=== PATIENT | female | born 1995 | race Caucasian/White ===

== ENCOUNTER 2016-10-22 10:05 | Emergency (ER) | payer OTHER ==
[~2016-10-22] VITALS: Ht 162.6 cm; Wt 102.5 kg
[~2016-10-22 10:05] MED LIST: DOXY100T20 PO; HYDR-3720 PO; IBUP800T25 PO; NITR-58 PO; ONDA4TAB35 PO
[2016-10-22 10:20] VITALS: Ht 162.6 cm; Wt 102.5 kg
[2016-10-22 12:29] LABS: URINE BLOOD (Dip) POC 2+ (NEGATIVE)
[2016-10-22] MEDS ORDERED: NITR-58 PO (13:26)
[2016-10-22] MEDS ORDERED: PHEN-537 PO (13:26)
[2016-10-22 13:35] VITALS: BP 116/68; PULSE 85; RESP 20; TEMP 98.3
--- NOTE | 2016-10-22 15:48 | ERD ---
ER Documentation Chief Complaint Date/Time DATE: 10/22/16 TIME: 15:45 Chief Complaint BLOOD IN THE URINE HPI 21-year-old female patient with no significant past medical history presents the ED complaining of dysuria and hematuria that started 3 days ago. Reports that she had some "meat" like clot come out of the vagina. States that she has been drinking cranberry juice without relief. States that her last menses was on October 15, 2016. Denies any chest pain, shortness of breath, pelvic pain, abdominal pain, nausea, vomiting, diarrhea, vaginal discharge, fever, chills. ROS All systems reviewed and are negative except as per history of present illness. Medications Home Meds Active Scripts Phenazopyridine Hcl* (Pyridium*) 100 Mg Tab, 100 MG PO TID Y for URINARY PAIN, # 8 TAB Prov:GERMÁN HER PA-C 10/22/16 Nitrofurantoin Monohyd Macrocr* (Macrobid*) 100 Mg Capsr, 100 MG PO BID for 7 Days, CAP Prov:GERMÁN HER PA-C 10/22/16 Nitrofurantoin Monohyd Macrocr* (Macrobid*) 100 Mg Capsr, 100 MG PO BID for 7 Days, CAP Prov:TRENTON WATTS PA-C 02/16/16 Ibuprofen* (Motrin*) 800 Mg Tab, 800 MG PO Q6, #30 TAB Prov:TRENTON WATTS PA-C 02/16/16 Doxycycline Hyclate* (Doxycycline Hyclate*) 100 Mg Tablet.dr, 100 MG PO BID for 5 Days, TAB Prov:JAI RUIZ DO 10/13/15 Ondansetron Hcl* (Zofran* ODT) 4 mg -ODT Tab.disper, 4 MG PO Q4H Y for NAUSEA AND OR VOMITING, #14 TAB Prov:JAI RUIZ DO 10/13/15 Hydrocodone Bit-Acetaminophen* (Block[place]*) 7.5-325 Tablet, 2 TAB PO Q4H Y for PAIN , #30 TAB Prov:BOY RUIZSTRENES A. DO 10/13/15 Allergies Allergies: Coded Allergies: No Known Allergy (Unverified , 10/13/15) PMhx/Soc History of Surgery: Yes (, TUBAL LIGATION) Anesthesia Reaction: No Hx Neurological Disorder: No Hx Respiratory Disorders: No Hx Cardiac Disorders: No Hx Psychiatric Problems: No Hx Miscellaneous Medical Probl: No Hx Alcohol Use: No Hx Substance Use: No Hx Tobacco Use: No Physical Exam Vitals Vital Signs Date Time Temp Pulse Resp B/P Pulse Ox O2 Delivery O2 Flow Rate FiO2 10/22/16 13:35 98.3 85 20 116/68 100 Room Air 10/22/16 10:20 98.2 93 18 117/80 99 Physical Exam Const: [id number], well-nourished. In no acute distress. Head: Atraumatic, normocephalic Eyes: Normal Conjunctiva without injection. No purulent discharge. ENT: Normal external ear, nose, mouth. Uvula midline. No drooling. No trismus. Neck: No cervical midline tenderness. Full range of motion. No meningismus. No cervical lymphadenopathy. No JVD. Resp: Clear to auscultation bilaterally. No wheezing, rhonchi, rales, or crackles. No accessory muscle use. No retractions. Cardio: Regular rate and rhythm. No murmurs, rubs or gallops. Abd: Soft, nontender, non distended. Normal bowel sounds. No palpable masses. No rebound tenderness. No guarding. Negative McBurney's point. Negative psoas sign. Negative obturator sign. Skin: No petechiae or rashes Back: No midline tenderness. No CVA tenderness. Ext: No cyanosis, or edema. Neur: Awake and alert. Normal gait. Normal coordination. Psych: Normal Mood and Affect Results 24 hrs Laboratory Tests Test 10/22/16 12:32 Bedside Urine pH (LAB) 6.0 Bedside Urine Protein (LAB) 2+ Bedside Urine Glucose (UA) Negative Bedside Urine Ketones (LAB) Negative Bedside Urine Blood 2+ Bedside Urine Nitrite (LAB) Positive Bedside Urine Leukocyte Esterase (L 3+ Procedures/MDM 21-year-old female patient with no significant past medical history presents to the ED complaining of hematuria and dysuria. Patient is afebrile nontoxic appearing. Patient has normal vital signs. Patient has a positive nitrite, 3+ leukocyte esterase, 2+ hematuria noted on urine dip. Negative . Patient is appropriate for outpatient management. There is low suspicion for septic renal stone, pyelonephritis, gastritis, GERD, peptic ulcer disease, cholecystitis, choledocholithiasis, cholangitis, pancreatitis, appendicitis, bowel obstruction, ileus, volvulus, nephrolithiasis, pyelonephritis, hepatitis, perforated viscus, diverticulitis, abdominal hernia, acute abdomen, mesenteric ischemia or other emergent conditions. 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 Instructed patient to return to the ED sooner for any worsening symptoms. Patient's questions were answered. Patient understood and agreed with discharge plan. Patient discharged stable. Departure Diagnosis: Primary Impression: Urinary tract infection Urinary tract infection type: acute cystitis Hematuria presence: with hematuria Qualified Code: N30.01 - Acute cystitis with hematuria Condition: Stable Patient Instructions: Understanding Urinary Tract Infections (UTIs) Referrals: [facility] YOU HAVE RECEIVED A MEDICAL SCREENING EXAM AND THE RESULTS INDICATE THAT YOU DO NOT HAVE A CONDITION THAT REQUIRES URGENT TREATMENT IN THE EMERGENCY DEPARTMENT. FURTHER EVALUATION AND TREATMENT OF YOUR CONDITION CAN WAIT UNTIL YOU ARE SEEN IN YOUR DOCTORS OFFICE WITHIN THE NEXT 1-2 DAYS. IT IS YOUR RESPONSIBILITY TO MAKE AN APPOINTMENT FOR FOLOW-UP CARE. IF YOU HAVE A PRIMARY DOCTOR --you should call your primary doctor and schedule an appointment IF YOU DO NOT HAVE A PRIMARY DOCTOR YOU CAN CALL OUR PHYSICIAN REFERRAL HOTLINE AT IF YOU CAN NOT AFFORD TO SEE A PHYSICIAN YOU CAN CHOSE FROM THE FOLLOWING [facility] CLINICS [facility] [address] [facility]. [facility] [address] [facility] [address] [facility] [address] [facility] [address] [facility]. [facility]. [address] [facility] YOU HAVE RECEIVED A MEDICAL SCREENING EXAM AND THE RESULTS INDICATE THAT YOU DO NOT HAVE A CONDITION THAT REQUIRES URGENT TREATMENT IN THE EMERGENCY DEPARTMENT. FURTHER EVALUATION AND TREATMENT OF YOUR CONDITION CAN WAIT UNTIL YOU ARE SEEN IN YOUR DOCTORS OFFICE WITHIN THE NEXT 1-2 DAYS. IT IS YOUR RESPONSIBILITY TO MAKE AN APPOINTMENT FOR FOLOW-UP CARE. IF YOU HAVE A PRIMARY DOCTOR --you should call your primary doctor and schedule and appointment IF YOU DO NOT HAVE A PRIMARY DOCTOR YOU CAN CALL OUR PHYSICIAN REFERRAL HOTLINE AT . IF YOU CAN NOT AFFORD TO SEE A PHYSICIAN YOU CAN CHOSE FROM THE FOLLOWING [facility] INSTITUTIONS: [facility] [address] [place] [address] [facility] [address] [place], [place] [id number] [place] [address] [address] [place] [address] [facility] URGENT CARE/SPECIALTIES Additional Instructions: Call your primary care doctor TOMORROW for an appointment during the next 2-3 days.See the doctor sooner or return here if your condition worsens before your appointment time. GERMÁN HER PA-C Oct 22, 2016 15:48 GERMÁN HER PA-C Oct 22, 2016 15:48
== END 2016-10-22 13:35 | disposition home or self-care (01) ==
LOC: FTE 10:05
DX: N30.01 Acute cystitis with hematuria (principal)
CPT/HCPCS: 81003; 99283

== ENCOUNTER 2017-04-14 12:48 | Emergency (ER) | payer OTHER ==
[~2017-04-14] VITALS: Ht 154.9 cm; Wt 103.1 kg
[~2017-04-14 12:48] MED LIST changes: +PHEN-537 PO
[2017-04-14 12:53] VITALS: Ht 154.9 cm; Wt 103.1 kg
[2017-04-14] MEDS ORDERED: ONDANSETRON (ODT) 4 MG TAB ODT STA (13:28)
[2017-04-14] MEDS ORDERED: HYDROCODONE/APAP (5/325) TAB PO ONE (13:30)
[2017-04-14 13:56] LABS: BASOPHILS % 0.4 % (0.0-2.0); EOSINOPHILS # 0.1 10^3/ul (0.0-0.5); EOSINOPHILS % 1.3 % (0.0-7.0); HEMATOCRIT 41.7 % (37.0-47.0); HEMOGLOBIN 14.3 g/dl (12.0-16.0); LYMPHOCYTES # 1.8 10^3/ul (0.8-2.9); LYMPHOCYTES % 17.4 % (15.0-51.0); MEAN CORPUSCULAR HEMOGLOBIN 28.9 pg (29.0-33.0); MEAN CORPUSCULAR HGB CONC 34.3 g/dl (32.0-37.0); MEAN CORPUSCULAR VOLUME 84.4 fl (82.0-101.0); MONOCYTE # 0.7 10^3/ul (0.3-0.9); NEUTROPHIL # 7.5 10^3/ul (1.6-7.5); NEUTROPHILS % 73.6 % (39.0-77.0); PLATELET COUNT 334 10^3/UL (140-415); RED BLOOD COUNT 4.94 10^6/ul (4.20-5.40); RED CELL DISTRIBUTION WIDTH 11.9 % (11.5-14.5); WHITE BLOOD COUNT 10.2 10^3/ul (4.8-10.8)
[2017-04-14 14:30] LABS: ALBUMIN 4.3 g/dl (3.3-4.9); ALBUMIN/GLOBULIN RATIO 1.16; BILIRUBIN,INDIRECT 0.4 mg/dl (0-1.1); BILIRUBIN,TOTAL 0.4 mg/dl (0.2-1.3); CALCIUM 10.1 mg/dl (8.4-10.2); CREATININE 0.61 mg/dl (0.44-1.00); POTASSIUM 3.9 mmol/L (3.5-5.1)
--- NOTE | 2017-04-14 15:00 | RADRPT ---
PROCEDURE: US Pelvis. CLINICAL INDICATION: pelvic pain TECHNIQUE: Multiple sonographic images of the pelvis were obtained utilizing a transabdominal and endovaginal technique. The images were reviewed on a PACS workstation. COMPARISON: US PELVIS 02/16/2016 FINDINGS: The uterus is normal in size with a normal appearance of the myometrium. The uterus measures 7.7 x 4.1 x 6.3 cm. The endometrial stripe is homogeneous in appearance and has the thickness of 9 mm. The right ovary measures 2.8 x 2.2 x 2.3 cm. There is a 1.2 cm simple cyst in the right ovary. There is normal Doppler flow. The left ovary once again not visualized. No free fluid is present within the pelvis. RPTAT: AA IMPRESSION: Unremarkable pelvic ultrasound. Left ovary not visualized. .Kenneth Ang MD, Date Time Electronically viewed and signed by .Kenneth Ang MD, on 04/14/2017 15:00 .S/
--- NOTE | 2017-04-14 15:01 | RADRPT ---
PROCEDURE: CT Abdomen and Pelvis without intravenous contrast. CLINICAL INDICATION: Abdominal and pelvic pain. . TECHNIQUE: CT scan of the abdomen and pelvis without intravenous contrast was performed on a multi -slice CT scanner. Coronal and sagittal reformatted images were obtained from the axial source image s. Images were reviewed on a high-resolution PACS workstation. DICOM images are available. Total DLP = 1387.2 mGy-cm. CTDIvol = 22.3 mGy. One or more of the following dose reduction techniques were used: Automated exposure control. Adjustment of the mA and/or kV according to patient size. Use of iterative reconstruction technique. COMPARISON: None. FINDINGS: CT abdomen and pelvis: The lung bases are clear. The heart size is normal in size. The liver is normal in size and densit y without focal mass or intrahepatic biliary dilatation. The spleen is normal in size and homogeneo us in density. The pancreas as visualized is normal. The gallbladder shows no evidence of stones or distension . The adrenal glands are normal. The kidneys are symmetrically unremarkable. No ur olithiasis, obstructive uropathy, or solid mass lesion is seen. The stomach is partially collapsed, but is grossly unremarkable. The small bowels are unremarkable. The colon and rectum are normal. The appendix is normal. There is no evidence of appendicitis or di verticulitis. The pelvic organs are normal. The bladder is decompressed. There is no abdominal or pe lvic adenopathy, free fluid, free air, mass or mesenteric inflammation. The aorta is normal in caliber and course. The osseous structures are intact. No osteolytic or osteo blastic lesions are identified. The soft tissues are within normal limits. Lack of IV and oral con trast limits sensitivity of exam. IMPRESSION: 1. Unremarkable noncontrast CT scan of the abdomen and pelvis. RPTAT: QQ .Mickey Riggins MD, Date Time Electronically viewed and signed by .Mickey Riggins MD, on 04/14/2017 15:01 .L/
[2017-04-14 17:29] LABS: ADD UMIC YES; UR ASCORBIC ACID NEGATIVE (NEGATIVE); UR BACTERIA MODERATE /HPF (NONE SEEN); UR BILIRUBIN (Dip) NEGATIVE (NEGATIVE); UR BLOOD (Dip) 3+ mg/dL (NEGATIVE); UR CLARITY CLOUDY (CLEAR); UR COLOR YELLOW (YELLOW); UR GLUCOSE (Dip) NEGATIVE (NEGATIVE); UR KETONES (Dip) NEGATIVE (NEGATIVE); UR LEUKOCYTE ESTERASE (Dip) 3+ Leu/ul (NEGATIVE); UR MUCUS FEW /HPF (NONE SEEN); UR NITRITE (Dip) POSITIVE (NEGATIVE); UR RBC > 182 /HPF (0-5); UR SPECIFIC GRAVITY (Dip) 1.024 (1.003-1.030); UR SQUAMOUS EPITHELIAL CELL FEW /HPF (FEW); UR TOTAL PROTEIN (Dip) 2+ mg/dl (NEGATIVE); UR UROBILINOGEN (Dip) NEGATIVE (NEGATIVE)
[2017-04-14] MEDS ORDERED: CEFTRIAXONE 1 GM INJ IM ONE (17:30)
[2017-04-14] MEDS ORDERED: IBUP-1542 PO (17:36)
[2017-04-14] MEDS ORDERED: CEPH-443 PO (17:36)
--- NOTE | 2017-04-14 17:50 | ERD ---
ER Documentation Chief Complaint Chief Complaint Pelvic pain x1hr, denies vag discharge or bleeding. 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 Patient reports that she has some slight nausea and had 2 episodes of nonbilious nonbloody vomiting. Denies any vaginal discharge, dysuria, urgency, frequency, vaginal bleeding. Reports that her last menstruation was on April 07, 2017. Denies any pain, shortness of breath, diarrhea. ROS All systems reviewed and are negative except as per history of present illness. Medications Home Meds Active Scripts Ondansetron (Ondansetron Odt) 4 Mg Tab.rapdis, 4 MG PO Q6H Y for NAUSEA AND/OR VOMITING, #10 TAB Prov:GERMÁN HER PA-C 04/14/17 Ibuprofen* (Motrin*) 600 Mg Tab, 600 MG PO Q6, #30 TAB Prov:GERMÁN HER PA-C 04/14/17 Cephalexin* (Keflex*) 500 Mg Capsule, 500 MG PO QID for 7 Days, CAP Prov:GERMÁN HER PA-C 04/14/17 Phenazopyridine Hcl* (Pyridium*) 100 Mg Tab, 100 MG PO TID Y for URINARY PAIN, # 8 TAB Prov:GERMÁN HER PA-C 10/22/16 Nitrofurantoin Monohyd Macrocr* (Macrobid*) 100 Mg Capsr, 100 MG PO BID for 7 Days, CAP Prov:GERMÁN HER PA-C 10/22/16 Nitrofurantoin Monohyd Macrocr* (Macrobid*) 100 Mg Capsr, 100 MG PO BID for 7 Days, CAP Prov:TRENTON WATTS PA-C 02/16/16 Ibuprofen* (Motrin*) 800 Mg Tab, 800 MG PO Q6, #30 TAB Prov:TRENTON WATTSC 02/16/16 Doxycycline Hyclate* (Doxycycline Hyclate*) 100 Mg Tablet.dr, 100 MG PO BID for 5 Days, TAB Prov:JAI RUIZ DO 10/13/15 Ondansetron Hcl* (Zofran* ODT) 4 mg -ODT Tab.disper, 4 MG PO Q4H Y for NAUSEA AND OR VOMITING, #14 TAB Prov:JAI RUIZ DO 10/13/15 Hydrocodone Bit-Acetaminophen* (Anderson*) 7.5-325 Tablet, 2 TAB PO Q4H Y for PAIN , #30 TAB Prov:JAI RUIZ. DO 10/13/15 Allergies Allergies: Coded Allergies: No Known Allergy (Unverified , 10/13/15) PMhx/Soc History of Surgery: Yes (, TUBAL LIGATION) Anesthesia Reaction: No Hx Neurological Disorder: No Hx Respiratory Disorders: No Hx Cardiac Disorders: No Hx Psychiatric Problems: No Hx Miscellaneous Medical Probl: No Hx Alcohol Use: No Hx Substance Use: No Hx Tobacco Use: No Physical Exam Vitals Vital Signs Date Time Temp Pulse Resp B/P Pulse Ox O2 Delivery O2 Flow Rate FiO2 04/14/17 12:53 97.7 97 18 126/88 97 Physical Exam Const: [id number]-tcu-[id number], well-nourished. In no acute distress. Head: Atraumatic, normocephalic Eyes: Normal Conjunctiva without injection. No purulent discharge. ENT: Normal external ear, nose. Moist oropharynx without tonsillar exudates. Non -erythematous pharynx. Uvula midline. No drooling. No trismus. Neck: No cervical midline tenderness. Full range of motion. No meningismus. No cervical lymphadenopathy. No JVD. Resp: Clear to auscultation bilaterally. No wheezing, rhonchi, rales, or crackles. No accessory muscle use. No retractions. Cardio: Regular rate and rhythm. No murmurs, rubs or gallops. Abd: Soft, nontender, non distended. Normal bowel sounds. No palpable masses. No rebound tenderness. No guarding. Negative McBurney's point. Negative psoas sign. Negative obturator sign. : See exam in MDM. Skin: No petechiae or rashes Back: No midline tenderness. No CVA tenderness. Ext: No cyanosis, or edema. Neur: Awake and alert. Normal gait. Normal coordination. Psych: Normal Mood and Affect Results 24 hrs Laboratory Tests Test 04/14/17 13:30 04/14/17 16:58 White Blood Count 10.210^3/ul Red Blood Count 4.9410^6/ul Hemoglobin 14.3g/dl Hematocrit 41.7% Mean Corpuscular Volume 84.4fl Mean Corpuscular Hemoglobin 28.9pg Mean Corpuscular Hemoglobin Concent 34.3g/dl Red Cell Distribution Width 11.9% Platelet Count 67292^3/UL Mean Platelet Volume 9.0fl Neutrophils % 73.6% Lymphocytes % 17.4% Monocytes % 7.0% Eosinophils % 1.3% Basophils % 0.4% Nucleated Red Blood Cells % 0.0/100WBC Neutrophils # 7.510^3/ul Lymphocytes # 1.810^3/ul Monocytes # 0.710^3/ul Eosinophils # 0.110^3/ul Basophils # 0.010^3/ul Nucleated Red Blood Cells # 0.010^3/ul Sodium Level 144mmol/L Potassium Level 3.9mmol/L Chloride Level 103mmol/L Carbon Dioxide Level 28mmol/L Anion Gap 17 Blood Urea Nitrogen 13mg/dl Creatinine 0.61mg/dl Glucose Level 119mg/dl Calcium Level 10.1mg/dl Total Bilirubin 0.4mg/dl Direct Bilirubin 0.00mg/dl Indirect Bilirubin 0.4mg/dl Aspartate Amino Transf (AST/SGOT) 31IU/L Alanine Aminotransferase (ALT/SGPT) 40IU/L Alkaline Phosphatase 96IU/L Total Protein 8.0g/dl Albumin 4.3g/dl Globulin 3.70g/dl Albumin/Globulin Ratio 1.16 Lipase 111U/L Urine Color YELLOW Urine Clarity CLOUDY Urine pH 6.0 Urine Specific [place] 1.024 Urine Ketones NEGATIVEmg/dL Urine Nitrite POSITIVEmg/dL Urine Bilirubin NEGATIVEmg/dL Urine Urobilinogen NEGATIVEmg/dL Urine Leukocyte Esterase 3+Iveth/ul Urine Microscopic RBC > 182/HPF Urine Microscopic WBC > 182/HPF Urine Squamous Epithelial Cells FEW/HPF Urine Bacteria MODERATE/HPF Urine Mucus FEW/HPF Urine Hemoglobin 3+mg/dL Urine Glucose NEGATIVEmg/dL Urine Total Protein 2+mg/dl Current Medications Medications (Trade) Dose Ordered Sig/Darryl Route PRN Reason Start Time Stop Time Status Last Admin Dose Admin Ondansetron HCl (Zofran Odt) 4 mg ONCE STAT ODT 04/14/17 13:28 04/14/17 13:31 DC 04/14/17 13:35 Acetaminophen/ Hydrocodone Bitart (Anderson (5/325)) 1 tab ONCE ONCE PO 04/14/17 13:30 04/14/17 13:31 DC 04/14/17 13:36 Ceftriaxone Sodium (Rocephin) 1 gm ONCE ONCE IM 04/14/17 17:30 04/14/17 17:31 DC 04/14/17 17:42 Procedures/MDM This is a 21-year-old female patient with no significant past medical history presents to the ED complaining of lower abdominal pain that started intermittently for 4 hours prior to arrival. Patient is afebrile and nontoxic- appearing. Patient has normal vital signs. Patient was further worked up with CBC, CMP, lipase, UA, CT of the abdomen and pelvis without contrast, pelvic ultrasound. Patient's pain and symptoms have improved after treatment with Anderson, Zofran. CBC: No leukocytosis. No e/o of systemic infection. No e/o anemia. CMP: No e/o severe acidosis, alkalosis, renal failure, diabetic ketoacidosis, liver disease Lipase within normal limits. Urine: 3+ leukocyte esterase, positive nitrite, 3+ hematuria. Urine : Negative PROCEDURE: CT Abdomen and Pelvis without intravenous contrast. CLINICAL INDICATION: Abdominal and pelvic pain. . TECHNIQUE: CT scan of the abdomen and pelvis without intravenous contrast was performed on a multi-slice CT scanner. Coronal and sagittal reformatted images were obtained from the axial source images. Images were reviewed on a high- resolution PACS workstation. DICOM images are available. Total DLP = 1387.2 mGy-cm. CTDIvol = 22.3 mGy. One or more of the following dose reduction techniques were used: Automated exposure control. Adjustment of the mA and/or kV according to patient size. Use of iterative reconstruction technique. COMPARISON: None. FINDINGS: CT abdomen and pelvis: The lung bases are clear. The heart size is normal in size. The liver is normal in size and density without focal mass or intrahepatic biliary dilatation. The spleen is normal in size and homogeneous in density. The pancreas as visualized is normal. The gallbladder shows no evidence of stones or distension . The adrenal glands are normal. The kidneys are symmetrically unremarkable. No urolithiasis, obstructive uropathy, or solid mass lesion is seen. The stomach is partially collapsed, but is grossly unremarkable. The small bowels are unremarkable. The colon and rectum are normal. The appendix is normal. There is no evidence of appendicitis or diverticulitis. The pelvic organs are normal. The bladder is decompressed. There is no abdominal or pelvic adenopathy, free fluid, free air, mass or mesenteric inflammation. The aorta is normal in caliber and course. The osseous structures are intact. No osteolytic or osteoblastic lesions are identified. The soft tissues are within normal limits. Lack of IV and oral contrast limits sensitivity of exam. IMPRESSION: 1. Unremarkable noncontrast CT scan of the abdomen and pelvis. PROCEDURE: US Pelvis. CLINICAL INDICATION: pelvic pain TECHNIQUE: Multiple sonographic images of the pelvis were obtained utilizing a transabdominal and endovaginal technique. The images were reviewed on a PACS workstation. COMPARISON: US PELVIS 02/16/2016 FINDINGS: The uterus is normal in size with a normal appearance of the myometrium. The uterus measures 7.7 x 4.1 x 6.3 cm. The endometrial stripe is homogeneous in appearance and has the thickness of 9 mm. The right ovary measures 2.8 x 2.2 x 2.3 cm. There is a 1.2 cm simple cyst in the right ovary. There is normal Doppler flow. The left ovary once again not visualized. No free fluid is present within the pelvis. RPTAT: AA IMPRESSION: Unremarkable pelvic ultrasound. Left ovary not visualized. Patient has a urinary tract infection possible early pyelonephritis. Low suspicion for ectopic , ovarian torsion, gastritis, GERD, peptic ulcer disease, cholecystitis, choledocholithiasis, cholangitis, pancreatitis, appendicitis, bowel obstruction, ileus, volvulus, nephrolithiasis, hepatitis, perforated viscus, diverticulitis, strangulated/incarcerated hernia, DKA, acute abdomen, mesenteric ischemia or other emergent conditions. Discharge medications: Ibuprofen, Keflex Follow up with primary care physician in 1-2 days. Instructed patient to return to the ED sooner for any worsening symptoms. Patient's questions were answered. Patient understood and agreed with discharge plan. Patient discharged stable. Departure Diagnosis: Primary Impression: Abdominal pain Abdominal location: unspecified location Qualified Code: R10.9 - Abdominal pain, unspecified abdominal location Condition: Stable Patient Instructions: Abdominal Pain, Urinary Tract Infections in Women Referrals: LOREN WATSON MD (PCP) [facility] YOU HAVE RECEIVED A MEDICAL SCREENING EXAM AND THE RESULTS INDICATE THAT YOU DO NOT HAVE A CONDITION THAT REQUIRES URGENT TREATMENT IN THE EMERGENCY DEPARTMENT. FURTHER EVALUATION AND TREATMENT OF YOUR CONDITION CAN WAIT UNTIL YOU ARE SEEN IN YOUR DOCTORS OFFICE WITHIN THE NEXT 1-2 DAYS. IT IS YOUR RESPONSIBILITY TO MAKE AN APPOINTMENT FOR FOLOW-UP CARE. IF YOU HAVE A PRIMARY DOCTOR --you should call your primary doctor and schedule an appointment IF YOU DO NOT HAVE A PRIMARY DOCTOR YOU CAN CALL OUR PHYSICIAN REFERRAL HOTLINE AT IF YOU CAN NOT AFFORD TO SEE A PHYSICIAN YOU CAN CHOSE FROM THE FOLLOWING [facility] [address] [facility]. [facility] [address] [facility]. [facility] [address] [facility]. [facility] [address] [facility]. [facility] [address] [facility]. [facility] [address] [facility]. [facility] YOU HAVE RECEIVED A MEDICAL SCREENING EXAM AND THE RESULTS INDICATE THAT YOU DO NOT HAVE A CONDITION THAT REQUIRES URGENT TREATMENT IN THE EMERGENCY DEPARTMENT. FURTHER EVALUATION AND TREATMENT OF YOUR CONDITION CAN WAIT UNTIL YOU ARE SEEN IN YOUR DOCTORS OFFICE WITHIN THE NEXT 1-2 DAYS. IT IS YOUR RESPONSIBILITY TO MAKE AN APPOINTMENT FOR FOLOW-UP CARE. IF YOU HAVE A PRIMARY DOCTOR --you should call your primary doctor and schedule and appointment IF YOU DO NOT HAVE A PRIMARY DOCTOR YOU CAN CALL OUR PHYSICIAN REFERRAL HOTLINE AT . IF YOU CAN NOT AFFORD TO SEE A PHYSICIAN YOU CAN CHOSE FROM THE FOLLOWING [facility] INSTITUTIONS: [facility] [address] [place] [address] [facility] [address] [place] [address] [facility] + [facility] [address] [place] [address] [facility] URGENT CARE/SPECIALTIES Additional Instructions: Call your primary care doctor TOMORROW for an appointment during the next 2-3 days.See the doctor sooner or return here if your condition worsens before your appointment time. GERMÁN HER PA-C Apr 14, 2017 17:50 Additional Instructions: Call your primary care doctor TOMORROW for an appointment during the next 2-3 days.See the doctor sooner or return here if your condition worsens before your appointment time. GERMÁN HER PA-C Apr 14, 2017 17:50
[2017-04-14] MEDS ORDERED: ONDA4TAB14 PO (17:57)
== END 2017-04-14 18:05 | disposition home or self-care (01) ==
LOC: FTE 12:48
DX: R10.2 Pelvic and perineal pain (principal)
CPT/HCPCS: 74176; 76830; 76856; 80053; 81001; 83690; 85025; J0696; Z7610; 36415; 96372